=== PATIENT | male | born 1975 | race Caucasian/White ===

== ENCOUNTER 2017-08-12 11:02 | Inpatient (IN) | payer BC, OTHER ==
[~2017-08-12] VITALS: Ht 182.9 cm; Wt 79.4 kg
[2017-08-12 13:30] VITALS: BP 115/76
[2017-08-12] MEDS ORDERED: DICYCLOMINE HCL 20 MG TABLET PO PRN (14:45)
[2017-08-12] MEDS ORDERED: MAGNESIUM HYDROXIDE 30 ML LIQUID UDC PO PRN (14:45)
[2017-08-12] MEDS ORDERED: THIAMINE HCL 200 MG/2 ML VIAL IM ONE (14:45)
[2017-08-12] MEDS ORDERED: NICOTINE POLACRILEX 4 MG GUM-PK OF TEN BC PRN (14:45)
[2017-08-12] MEDS ORDERED: MIRALAX 17 GM POWD.PACK PO PRN (14:45)
[2017-08-12] MEDS ORDERED: CLONIDINE HCL 0.1 MG TABLET PO PRN (14:45)
[2017-08-12] MEDS ORDERED: LORAZEPAM 1 MG TABLET PO PRN (14:45)
[2017-08-12] MEDS ORDERED: LOPERAMIDE HCL 2 MG CAPSULE PO PRN ×2 (14:45)
[2017-08-12] MEDS ORDERED: ONDANSETRON 4 MG/2 ML VIAL IM PRN (14:45)
[2017-08-12] MEDS ORDERED: NICOTINE 14 MG/24HR PATCH TD PRN (14:45)
[2017-08-12] MEDS ORDERED: LORAZEPAM 2 MG/1 ML VIAL IM PRN (14:45)
[2017-08-12] MEDS ORDERED: MAG HYDROX/AL HYDROX/SIMETH 30 ML LIQUID UDC PO PRN (14:45)
[2017-08-12] MEDS ORDERED: ACETAMINOPHEN 325 MG TABLET PO PRN (14:45)
--- NOTE | 2017-08-12 14:46 | NUR ---
PRE ASSESSMENT; A 6O YO MALE A/O X 4 WITH STEADY GAIT IN INTAKE FOR ETOH WITHDRAWAL. HE IS FLUSHED WITH ANXIOUS MOOD AND GUARDED AFFECT. HE REPORTS DRINKING 1 LITER OF VODKA DAILY IN THIS PATTERN FOR 2 YEARS. HE LAST DRANK [address] PLANE FROM [employer] TODAY AND 2 BEERS THIS MORNING BEFORE PLANE RIDE. HE DENIES SZ HX. HE REPORTS A HX OF DEPRESSION. CURRENTLY NO ANTIDEPRESSANTS ON BOARD. HE DENIES MEDICAL HX. HE STATES HE CANNOT STOP DRINKING ON HIS OWN AND NEEDS HELP. BP 153/86 P 107 R 18 T 97.9 WILL ASSESS ON UNIT.
[2017-08-12] MEDS ORDERED: HYDR28GE TP (15:02)
[2017-08-12] MEDS ORDERED: [UNRECOGNIZED DRUG - CODE] PO (15:02)
[2017-08-12] MEDS ORDERED: LOPE1TAB46 PO (15:02)
[2017-08-12] MEDS ORDERED: Famotidine (15:02)
[2017-08-12] MEDS ORDERED: CHOL200074 PO (15:07)
[2017-08-12 15:22] LABS: *AMPHETAMINE, URINE NEGATIVE (NEGATIVE); *BARBITURATE, URINE NEGATIVE (NEGATIVE); *CANNABINOID, URINE NEGATIVE (NEGATIVE); *COCCAINE, URINE NEGATIVE (NEGATIVE); *OPIATE, URINE NEGATIVE (NEGATIVE); *PHENCYCLIDINE SCREEN,URINE NEGATIVE (NEGATIVE)
[2017-08-12 15:42] LABS: BASOPHILS % (AUTO) 0.6 % (0.0-2.0); EOSINOPHILS # (AUTO) 0.1 K/uL (0.0-0.7); EOSINOPHILS % (AUTO) 1.7 % (0.0-7.0); HEMATOCRIT 43.7 % (36.7-47.1); HEMOGLOBIN 15.1 g/dL (12.5-16.3); LYMPHOCYTES % (AUTO) 15.3 % (20.5-51.5); MEAN CORPUSCULAR HGB CONC 35 g/dL (32.5-36.3); MEAN CORPUSCULAR VOLUME 86.6 fL (73.0-96.2); MONOCYTES # (AUTO) 0.5 K/uL (2.0-10.0); MONOCYTES % (AUTO) 8.4 % (0.0-11.0); NEUTROPHILS # (AUTO) 4.8 K/uL (1.8-8.9); RED BLOOD CELL COUNT(AUTO) 5.05 MIL/uL (4.06-5.63); WHITE BLOOD COUNT (AUTO) 6.4 K/uL (3.6-10.2)
[2017-08-12 15:44] LABS: PLATELET COUNT (AUTO) 145 K/uL (152-348)
[2017-08-12 15:52] LABS: CREATININE 0.8 mg/dL (0.6-1.3); MAGNESIUM 1.8 mg/dL (1.8-2.4); POTASSIUM 3.3 mmol/L (3.5-5.1); TOTAL PROTEIN, SERUM 7.6 g/dL (6.4-8.2)
[2017-08-12 16:00] VITALS: BP 146/94
[2017-08-12 16:02] LABS: THYROID STIMULATING HORMONE 0.905 mIU/mL (0.358-3.740)
--- NOTE | 2017-08-12 16:06 | NUR ---
ADMISSION: A 42 YEAR OLD MALE ADMITTED FOR MEDICALLY SUPERVISED WITHDRAWAL OF ETOH. HE REPORTS DRINKING 1 LITER OF VODKA DAILY IN THIS PATTERN FOR 2 YEARS. HE LAST DRANK 2 BEERS BEFORE GETTING ON THE PLANE. HE REPORTS DRINKING 3 MINIATURE BOTTLES OF WINE ON THE PLANE AND A DOUBLE VODKA COCKTAIL. HE PRESENTS WITH FLUSHED FACE,ANXIOUS MOOD AND CONGRUENT AFFECT. FINE TREMORS TO HANDS NOTED. HE IS FIDGETY AND BECOMES EMOTIONAL WHEN DISCUSSING THE NEGATIVE CONSEQUENCES OF HIS DRINKING. HE DENIES S/I AND H/I. HE STATES HE IS AND STATES HIS DRINKING WAS A BIG PART OF WHY, AND HE LOST HIS JOB LAST MONDAY DUE TO HIS DRINKING. HE STATES HE ALSO MISSED HIS KIDS BIRTHDAY LAST WEEK DUE TO HIS OUT OF CONTROL DRINKING HABITS.HE STATES HE CANNOT STOP AND HIS FRIENDS AND FAMILY ARE FED UP WITH HIM. HE DENIES SEIZURE HX. HE DENIES MEDICAL HX. HE REPORTS A HX OF DEPRESSION. HE STATES HE TOOK [place] YEARS AGO BUT NO MEDS AT THIS TIME. HE DENIES ALLERGIES. HE DENIES A PCP. CIWA 15. ORIENTED PT TO STAFF AND UNIT . OFFERED SUPPORT AND REASSURED PT THAT NURSING IS AVAILABLE 19/09. THIAMINE IM ADMINISTERED. WILL MONITOR ,MANAGE S/S OF W/D AND OFFER SAFE AND SUPPORTIVE ENVIRONMENT.
[2017-08-12] MEDS ORDERED: POTASSIUM CHLORIDE 10 MEQ TAB.PRT.SR PO ONE (16:30)
[2017-08-12] MEDS: LORAZEPAM 1 MG TABLET PO PRN ×2 (16:42→20:47)
--- NOTE | 2017-08-12 16:45 | NUR ---
PRN ATIVAN 2 MG PO GIVEN FOR CIWA 15. WILL MONITOR EFFECTIVENESS OF PRN MED.
--- NOTE | 2017-08-12 17:45 | NUR ---
PRN ATIVAN EFFECTIVE AEB CIWA 10. WILL CONTINUE TO MONITOR.
--- NOTE | 2017-08-12 19:01 | NUR ---
END OF SHIFT: PT IS NEWLY ADMITTED FOR ETOH WITHDRAWAL. LAST CIWA 10 AFTER ADMINISTERING ATIVAN 2 MG PO PRN FOR CIWA 15. HE IS LAYING IN BED A/OX 4 WATCHING TV. HIS MOOD IS LABILE AND HJE IS EMOTIONAL AND ANXIOUS. OFFERED SUPPORT. WILL PASS SHIFT REPORT TO ONCOMING NIGHT NURSE.
--- NOTE | 2017-08-12 19:30 | NUR ---
Start of Shift Pt is a 42 y/o male admitted 08/12/17 for medically managed withdrawal/detox from ETOH. Pt is a Full Code with NKA's on a Regular diet. Pt presents with a PMH of Depression and Anxiety, denies any seizure history, on PRN Ativan PO. Pt found in room, supine in bed. Able to follow commands and answer questions appropriately. C/o anxiety and agitation apparent. Pt says "It feels like my heart is trying to beat out of my chest". Evening meds reviewed with pt with Ativan and Benedryl requested. Pt forehead slightly moist, hands tremulous, no c/o N&V. Will administer evening meds and monitor pt, promptly attending to all needs
[2017-08-12 20:00] VITALS: BP 137/98
[2017-08-12] MEDS: diphenhydrAMINE 50 MG CAPSULE PO PRN (20:46)
--- NOTE | 2017-08-12 20:47 | NUR ---
PRN Meds Ativan 2mg PO given for CIWA of 16, Pt diaphoretic, HR 110, SBP 137. Benedryl 50mg PO given for insomnia. Will continue to monitor, reassessing in 1 hour, and promptly attend to all pt needs
--- NOTE | 2017-08-12 21:47 | NUR ---
PRN Reassessment Ativan 2mg PO and Benedryl 50mg PO given 1 hour prior. At present pt sleeping, RR 14, even and nonlabored. Meds effective
[2017-08-13] VITALS: BP 144/85
[2017-08-13 04:00] VITALS: BP 135/85
--- NOTE | 2017-08-13 07:32 | NUR ---
End of Shift Pt is a 42 y/o male admitted 08/12/17 for medically managed withdrawal/detox from ETOH. Pt is a Full Code with NKA's on a Regular diet. Pt presents with a PMH of Depression and Anxiety, denies any seizure history, on PRN Ativan PO. Pt remains on safety precautions (fall/seizure). Pt rec'd Ativan 2mg PO for CIWA of 16 and Benedryl 50mg PO as PRN's for shift. Last CIWA 9 at 0400. Pt slept for 9 hours, with 800 mls intake, 2 voids and no BM's. Endorsement given to day nurse.
[2017-08-13 08:00] VITALS: BP 141/89
--- NOTE | 2017-08-13 08:05 | NUR ---
START OF SHIFT: RECEIVED PT LAYING IN BED WITH EYES CLOSED. RESPIRATIONS EVEN AND UNLABORED. CALL JI IN REACH. BED LOCKED AND LOW. WILL ASSESS DURING MED ADMINISTRATION.
[2017-08-13] MEDS ORDERED: TUBERCULIN,PURIF.PROT.DERIV. 5 TU/0.1 ML TEST ID ONE (09:00)
[2017-08-13] MEDS: MULTIVITAMINS,THERAPEUTIC TABLET PO SCH (09:05)
[2017-08-13] MEDS: FOLIC ACID 1 MG TABLET PO SCH (09:05)
[2017-08-13] MEDS: THIAMINE HCL 100 MG TABLET PO SCH (09:05)
[2017-08-13] MEDS: LORAZEPAM 1 MG TABLET PO PRN (09:05)
--- NOTE | 2017-08-13 09:07 | NUR ---
PT IS A/O X 4. HE PRESENTS WITH ANXIOUS MOOD AND GUARDED AFFECT. FINE TREMORS NOTED TO HANDS. HIS FACE IS FLUSHED. HE IS FIDGETY AND DISHEVELED. HE REPORTS ANXIETY,MILD NAUSEA,IRRITABILITY,DEPRESSION AND FATIGUE. CIWA 15 PRN ATIVAN 2 MG PO GIVEN TO MANAGE S/S OF W/D. WILL MONITOR EFFECTIVENESS OF PRN MED. ENCOURAGED INCREASED FLUIDS TO ASSIST IN FACILITATING DETOX PROCESS. ENCOURAGED REST TODAY. PPD PLANTED TO [facility]. WILL CONTINUE TO PROVIDE SAFE AND SUPPORTIVE ENVIRONMENT AND MANAGE S/S OF W/D.
--- NOTE | 2017-08-13 10:07 | NUR ---
ATIVAN PRN EFFECTIVE AEB CIWA 11. HE REPORTS THAT HE FEELS A LITTLE BETTER. WILL CONTINUE TO MONITOR.
[2017-08-13 12:00] VITALS: BP 142/90
[2017-08-13] MEDS: ONDANSETRON ODT 4 MG TAB.RAPDIS SL PRN (12:23)
--- NOTE | 2017-08-13 12:25 | NUR ---
PRN ZOFRAN GIVEN FOR REPORTED NAUSEA. WILL MONITOR EFFECTIVENESS.
--- NOTE | 2017-08-13 13:25 | NUR ---
PRN ZOFRAN EFFECTIVE. HE DENIES NAUSEA AT THIS TIME.
[2017-08-13] MEDS: LORAZEPAM 1 MG TABLET PO SCH ×2 (14:16→20:30)
[2017-08-13 16:00] VITALS: BP 157/94
--- NOTE | 2017-08-13 18:33 | NUR ---
END OF SHIFT: PT STARTED ON ATIVAN TAPER THIS AFTERNOON. PRN ATIVAN GIVEN TO MANAGE S/S OF W/D WHICH INCLUDE ANXIETY ,SWEATS,NAUSEA,DEPRESSION AND IRRITABILITY. PRN ZOFRAN GIVEN FOR NAUSEA AND EFFECTIVE. LAST CIWA 13. HE RESTED MOST OF SHIFT AND WAS COMPLIANT WITH INCREASED FLUIDS. WILL PASS SHIFT REPORT TO ONCOMING NIGHT NURSE.
--- NOTE | 2017-08-13 19:30 | NUR ---
Start of Shift Pt is a 42 y/o male admitted 08/12/17 for medically managed withdrawal/detox from ETOH. Pt is a Full Code with NKA's on a Regular diet. Pt presents with a PMH of Depression and Anxiety, denies any seizure history, on 4 day Ativan taper starting 08/13/17. Pt found in room, supine in bed. Able to follow commands and answer questions appropriately. C/o anxiety and agitation apparent. Evening meds reviewed with pt with Ativan and Benedryl requested. Pt forehead slightly moist, hands tremulous,c/o slight nausea. Will administer evening meds and monitor pt, promptly attending to all needs
[2017-08-13 20:00] VITALS: BP 138/90
[2017-08-13] MEDS: diphenhydrAMINE 50 MG CAPSULE PO PRN (20:30)
--- NOTE | 2017-08-13 20:30 | NUR ---
PRN Med Benedryl 50mg PO given for insomnia per pt request. Will continue to monitor, reassessing in 1 hour, and promptly attending to all pt needs.
--- NOTE | 2017-08-13 21:30 | NUR ---
PRN Reassessment Benedryl 50mg PO given 1 hour prior for insomnia. At present pt in bed supine, sleeping, RR 14, even and nonlabored. Med effective
[2017-08-14] VITALS: BP 124/76
[2017-08-14 04:00] VITALS: BP 117/72
--- NOTE | 2017-08-14 04:00 | NUR ---
CIWA Deferred VS's obtained, CIWA deferred r/t pt sleeping/refused. Will continue to monitor
--- NOTE | 2017-08-14 07:17 | NUR ---
Start of Shift Pt is a 42 y/o male admitted 08/12/17 for medically managed withdrawal/detox from ETOH. Pt is a Full Code with NKA's on a Regular diet. Pt presents with a PMH of Depression and Anxiety, denies any seizure history, on 4 day Ativan taper starting 08/13/17. Pt still appearing depressed, anxious about work/home/housing. Provided encouragement for future/suggestion PRN's for shift included Benedryl 50mg PO for insomnia. Last CIWA was 7 at 0000 hours. Pt slept for 8 hours, with 1000 mls intake, 2 voids and no BM's. Endorsement given to day nurse.
--- NOTE | 2017-08-14 07:46 | NUR ---
START OF SHIFT PT IS A 42 Y/O M ADMITTED ON 08/12/17 FOR MEDICALLY SUPERVISED ETOH WITHDRAWAL. PT IS PLACED ON A 4 DAY ATIVAN TAPER, TODAY BEING THE SECOND DAY. LAST CIWA 7, BENADRYL PRN GIVEN LAST NIGHT FOR SLEEP AND PT SLEPT 8 HRS. RECEIVED PT A/OX4, RESPIRATIONS EVEN AND UNLABORED. PT APPEARS DISHEVELED, HAS A FLAT AFFECT, PT PRESENTS HEADACHE, ANXIETY, AGITATION, RESTLESSNESS, DIARRHEA, INTERMITTENT CHILLS, FATIGUE, DYSPHORIA, ANHEDONIA AND TREMORS ARE NOTED. EDUCATED PT WITH TODAY'S PLAN OF CARE AND MED REGIMEN. SIDE RAILS UPX2, BED IN LOW POSITION. CALL LIGHT WITHIN REACH. SAFETY MEASURES IN PLACE. WILL CONTINUE TO MONITOR.
[2017-08-14 08:00] VITALS: BP 111/69
[2017-08-14 08:22] LABS: BASOPHILS % (AUTO) 0.4 % (0.0-2.0); EOSINOPHILS # (AUTO) 0.2 K/uL (0.0-0.7); EOSINOPHILS % (AUTO) 4.1 % (0.0-7.0); HEMATOCRIT 45.2 % (36.7-47.1); HEMOGLOBIN 15.6 g/dL (12.5-16.3); LYMPHOCYTES # (AUTO) 1.3 K/uL (20.0-40.0); LYMPHOCYTES % (AUTO) 23.2 % (20.5-51.5); MEAN CORPUSCULAR HEMOGLOBIN 30.6 uug (23.8-33.4); MEAN CORPUSCULAR HGB CONC 35 g/dL (32.5-36.3); MEAN CORPUSCULAR VOLUME 88.7 fL (73.0-96.2); MONOCYTES # (AUTO) 0.4 K/uL (2.0-10.0); NEUTROPHILS # (AUTO) 3.6 K/uL (1.8-8.9); NEUTROPHILS % (AUTO) 65.3 % (38.5-71.5); PLATELET COUNT (AUTO) 110 K/uL (152-348); WHITE BLOOD COUNT (AUTO) 5.4 K/uL (3.6-10.2)
[2017-08-14] MEDS: MULTIVITAMINS,THERAPEUTIC TABLET PO SCH (08:22)
[2017-08-14] MEDS: IBUPROFEN 400 MG TABLET PO PRN (08:22)
[2017-08-14] MEDS: FOLIC ACID 1 MG TABLET PO SCH (08:22)
[2017-08-14] MEDS: THIAMINE HCL 100 MG TABLET PO SCH (08:22)
--- NOTE | 2017-08-14 08:23 | NUR ---
PRN IMODIUM AND IBUPROFEN GIVEN FOR DIARRHEA AND C/O HEADACHE /10 PAIN. WILL MONITOR AND REASSESS.
[2017-08-14] MEDS ORDERED: LORAZEPAM 1 MG TABLET PO SCH ×2 (09:00→21:00)
[2017-08-14 09:07] LABS: BILIRUBIN,DIRECT 0.3 mg/dL (0.0-0.2); BILIRUBIN,TOTAL 1.1 mg/dL (0.2-1.0); MAGNESIUM 2.1 mg/dL (1.8-2.4); POTASSIUM 4.8 mmol/L (3.5-5.1)
--- NOTE | 2017-08-14 09:23 | NUR ---
REASSESSMENT PT IS IN ROOM LAYING IN BED WATCHING TV; PT REPORTS IBUPROFEN WAS EFFECTIVE IN DECREASING THE PAIN LEVEL DOWN TO 5/10 FROM 8. NO DIARRHEA EPISODES OF YET. WILL CONTINUE TO MONITOR AND PROVIDE SUPPORT.
[2017-08-14] MEDS: ESCITALOPRAM OXALATE 10 MG TABLET PO SCH (09:55)
[2017-08-14 12:00] VITALS: BP 131/81
[2017-08-14] MEDS: LORAZEPAM 1 MG TABLET PO SCH ×2 (12:12→16:35)
[2017-08-14] MEDS: ONDANSETRON ODT 4 MG TAB.RAPDIS SL PRN (12:13)
--- NOTE | 2017-08-14 12:50 | NUR ---
REASSESSMENT PT REPORTS NAUSEA HAS CEASED. SAFETY MEASURES IN PLACE. WILL CONTINUE TO MONITOR.
[2017-08-14] MEDS ORDERED: GABAPENTIN 300 MG CAPSULE PO SCH (13:00)
[2017-08-14 13:06] LABS: HEPATITIS B SURFACE AG Negative (Negative)
--- NOTE | 2017-08-14 13:19 | NUR ---
PRN NAUSEA 4MG SL PRN GIVEN FOR C/O NAUSEA; PT REPORTS A GENERALIZED FEELING OF BEING UNWELL, PERSISTENT NAUSEA AND DENIES VOMITING. WILL MONITOR AND REASSESS. Addendum: 08/14/17 at 1321 by CHICHO TAYLOR RN CORRECT TIME IS 1213
[2017-08-14 16:25] VITALS: BP 129/86
--- NOTE | 2017-08-14 19:25 | NUR ---
END OF SHIFT PT HAS BEEN ISOLATIVE IN ROOM THROUGHOUT SHIFT AND CONTINUES TO BE FLUSHED, HAS A DEPRESSIVE AND ANXIOUS MOOD WITH A FLAT AFFECT. PT HAS BEEN EMOTIONAL AND VERBALIZING HIS SITUATION WITH THE THERAPIST AND STAFF. PT STATES HE FEELS MUCH BETTER AFTERWARDS. LAST CIWA @1600. PT HAS BEEN GIVEN IBUPROFEN PRN FOR HEADACHE. PT HAS ATTENDED GROUPS; STATES IT INCREASES HIS ANXIETY. PT ATE 75% OF MEALS. FLUID INTAKE 2596ML, VOIDED X5, BM X1. SAFETY MEASURE IN PLACE. ENDORSEMENT GIVEN TO STATE'S ATTORNEY NURSE.
--- NOTE | 2017-08-14 19:30 | NUR ---
Start of Shift Pt endorsement received from day nurse. Pt assessed in room. Room somewhat messy with an odor. Empty food wrappings and drink containers scattered about appearing very sad and worried, fearful, preoccupied with avoidant eye contact Report that it was a very emotional day with groups, triggering old events and emotions. Pt discusses ex-, children, brother he is currently living with, and being fired from his job. Feeling of worthlessness and hopeless/helpless evident. Pt reassured and encouraged. Pt noted with c/o sweats, restlessness, increased anxiety and agitation (majority of CIWA), diarrhea, mild H/A, rates pain as 1/10. Pt requests sleep aid with evening meds. Will monitor and attend to all needs promptly until morning endorsement.
[2017-08-14 20:00] VITALS: BP 148/97
[2017-08-14] MEDS: GABAPENTIN 300 MG CAPSULE PO SCH (21:21)
[2017-08-14] MEDS: diphenhydrAMINE 50 MG CAPSULE PO PRN (21:21)
--- NOTE | 2017-08-14 21:21 | NUR ---
PRN Med Benedryl 50mg PO given for pt c/o insomnia. Will continue to monitor, reassessing in 1 hour
--- NOTE | 2017-08-14 22:21 | NUR ---
PRN Reassessment Benedryl 50mg PO given for insomnia 1 hour prior. At present pt is sleeping, RR 14, even and nonlabored. Med effective
[2017-08-15] VITALS (7 sets, daily range): BP systolic 107–138; BP diastolic 60–84
--- NOTE | 2017-08-15 | NUR ---
CIWA Deferred VS's obtained and stable, BP 123/60, HR 79, RR 14 even and nonlabored. CIWA deferred r/t pt sleeping. Will continue to monitor pt
--- NOTE | 2017-08-15 04:00 | NUR ---
CIWA Deferred VS's obtained and stable, BP 111, HR 65, RR 14 even and nonlabored. CIWA deferred r/t pt sleeping. Will continue to monitor pt
--- NOTE | 2017-08-15 07:35 | NUR ---
End of Shift Endorsement reported to day nurse. Pt issues are anxiety/agitation over ex-, children, career. Feelings of guilt/shame/low self-esteem with racing thoughts, feelings of worthlessness and easily overwhelmed/unresolved bereavement. Night uneventful, no behavioral or withdrawal episodes noted p evening meds. HR noted to decrease throughout night. VS's, BP stable with no c/o's post evening meds. Pt slept for 7 hours with 2047 mls intake, 2 voids and no BM's
--- NOTE | 2017-08-15 07:47 | NUR ---
START OF SHIFT PT IS A 42 Y/O M ADMITTED ON 08/12/17 FOR MEDICALLY SUPERVISED ETOH WITHDRAWAL. TODAY IS THE THIRD DAY OF THE 4 DAY ATIVAN TAPER,. LAST CIWA , BENADRYL PRN GIVEN LAST NIGHT FOR SLEEP AND PT SLEPT 7 HRS. RECEIVED PT A/OX4, RESPIRATIONS EVEN AND UNLABORED. PT APPEARS DISHEVELED, HAS A FLAT AFFECT WITH A ANXIOUS AND DEPRESSION MOOD, PT PRESENTS FACIAL FLUSHING, HEADACHE, HIGHER EMOTIONAL AMPLITUDE, ANXIETY, AGITATION, RESTLESSNESS, INTERMITTENT CHILLS, FATIGUE, DYSPHORIA, ANHEDONIA AND TREMORS ARE NOTED. EDUCATED PT WITH TODAY'S PLAN OF CARE AND MED REGIMEN. SIDE RAILS UPX2, BED IN LOW POSITION. CALL LIGHT WITHIN REACH. SAFETY MEASURES IN PLACE. WILL CONTINUE TO MONITOR.
[2017-08-15] MEDS: MULTIVITAMINS,THERAPEUTIC TABLET PO SCH (08:59)
[2017-08-15] MEDS: ESCITALOPRAM OXALATE 10 MG TABLET PO SCH (08:59)
[2017-08-15] MEDS: LORAZEPAM 1 MG TABLET PO SCH ×3 (08:59→20:13)
[2017-08-15] MEDS: FOLIC ACID 1 MG TABLET PO SCH (08:59)
[2017-08-15] MEDS: THIAMINE HCL 100 MG TABLET PO SCH (08:59)
[2017-08-15] MEDS: GABAPENTIN 300 MG CAPSULE PO SCH ×2 (08:59→20:13)
[2017-08-15] MEDS: IBUPROFEN 400 MG TABLET PO PRN (09:03)
--- NOTE | 2017-08-15 09:03 | NUR ---
PRN IBUPROFEN 40 MG PO PRN GIVEN FOR HEADACHE 6/10 PAIN. WILL MONITOR AND REASSESS.
--- NOTE | 2017-08-15 10:03 | NUR ---
REASSESSMENT PT REPORTS MED EFFECTIVE; HEADACHE IS NOW DECREASED TO 3/10 PAIN. WILL CONTINUE TO MONITOR.
[2017-08-15] MEDS ORDERED: ACAMPROSATE CALCIUM 333 MG TABLET.DR PO ONE (13:00)
[2017-08-15] MEDS ORDERED: ACAM333T8 PO (13:07)
--- NOTE | 2017-08-15 19:16 | NUR ---
END OF SHIFT PT HAS ATTENDED, PARTICIPATED IN GROUPS AND HAS TALKED TO THE THERAPIST ABOUT HIS SITUATION WITH EX- AND KIDS. PT REPORTS IT HAS BEEN THERAPEUTIC AND HELPING HIM, HOWEVER STILL FEELING DEPRESSED. PT APPEARS FLUSHED, HAS A DEPRESSIVE AND ANXIOUS MOOD WITH A FLAT AFFECT. LAST CIWA 15 @1600. C/O HEADACHE, ANXIETY, RESTLESSNESS, AGITATION. PT HAS BEEN GIVEN IBUPROFEN PRN FOR HEADACHE. PT ATE 0/100/75% OF MEALS. FLUID INTAKE 1596ML, VOIDED X3, BM 0. SAFETY MEASURE IN PLACE. ENDORSEMENT GIVEN TO INDUSTRIAL GAS SERVICER NURSE.
--- NOTE | 2017-08-15 19:30 | NUR ---
START OF SHIFT Pt is a 42 y/o male admitted for ETOH withdawals.Pt is A/A/O X 4.Received in room,mood is sad and depressed,c/o feeling extremely anxious and emotionally disturbed due to divorce issues he has been going through,said he his missing his children and wants to to do the best for them.Emotional support provided.Pt encouraged to verbalize needs and concerns.Pt presented with mild headache,intermittent chills,anxiety and agitation.Pt has been compliant with medications and tx plan.Last CI.All safety measures in place,call sinclair is within reach.Will continue to medicate per orders and monitor for safe withdrawals.
[2017-08-15] MEDS ORDERED: HYDROXYZINE PAMOATE 25 MG CAPSULE PO PRN (20:00)
--- NOTE | 2017-08-15 20:15 | NUR ---
PT C/O FEELING EXTREMELY ANXIOUS.PRN VISTARIL GIVEN ORDERED.WILL CONTINUE TO MONITOR.
--- NOTE | 2017-08-15 21:15 | NUR ---
PRN F/U PT VERBALIZES A DECREASE IN ANXIETY.WILL CONTINUE TO MONITOR.
[2017-08-15] MEDS: diphenhydrAMINE 50 MG CAPSULE PO PRN (21:39)
--- NOTE | 2017-08-15 21:40 | NUR ---
PRN BENADRYL GIVEN FOR C/O INSOMNIA.
--- NOTE | 2017-08-15 22:13 | NUR ---
PT IS STILL AWAKE AND ANXIOUS.B/P=149/98.PRN CLONIDINE GIVEN ORDERED,WILL CONTINUE TO MONITOR.
--- NOTE | 2017-08-15 23:15 | NUR ---
PRN MEDS ARE EFFECTIVE.PT IS CALM AND RESTING IN BED WITH EYES CLOSED.BREATHING IS EVEN AND NON LABORED.NO S/S OF DISTRESS NOTED.WILL CONTINUE TO MONITOR.
[2017-08-16] VITALS: BP 105/61
--- NOTE | 2017-08-16 | NUR ---
CIWA DEFERRED V/S are stable, BP 105/61, HR 71, RR 16 even and nonlabored. CIWA deferred due to pt being asleep. Will continue to monitor.
[2017-08-16 04:00] VITALS: BP 110/69
--- NOTE | 2017-08-16 04:00 | NUR ---
CIWA DEFERRED V/S are stable.Pt is sleeping comfortably in bed,breathing is even and non labored,no s/s of distress noted. CIWA deferred due to pt being asleep. Will continue to monitor.
--- NOTE | 2017-08-16 06:48 | NUR ---
END OF SHIFT Pt is a 42 y/o male admitted for ETOH withdrawals.Pt is A/A/O X 4,mood is sad and depressed,c/o feeling extremely anxious and emotionally disturbed due to divorce issues he has been going through,said he his missing his children and wants to to do the best for them.Emotional support provided.Pt encouraged to verbalize needs and concerns.PRN meds : Benadryl,Vistaril anf Clonidine were given and were effective.Pt slept 7 hrs,fluid intake was 1500 mls,voided x 2. Pt has been compliant with medications and tx plan.Last CIWA 12.All safety measures in place,call sinclair is within reach .Will endorse care to day shift nurse.
--- NOTE | 2017-08-16 07:53 | NUR ---
START OF SHIFT PT IS A 42 Y/O M ADMITTED ON 08/12/17 FOR MEDICALLY SUPERVISED ETOH WITHDRAWAL. TODAY IS THE FOURTH DAY OF 4 DAY ATIVAN TAPER, LAST CIWA 12, CLONIDINE, VISTARIL, AND BENADRYL PRNS GIVEN LAST NIGHT. PT SLEPT 7 HRS. RECEIVED PT A/OX4, RESPIRATIONS EVEN AND UNLABORED. PT APPEARS DISHEVELED, HAS A DEPRESSIVE MOOD, PT PRESENTS ANXIETY, FACIAL FLUSHING, HEADACHE, HIGHER EMOTIONAL AMPLITUDE, AGITATION, RESTLESSNESS, FATIGUE, DYSPHORIA, ANHEDONIA AND TREMORS ARE NOTED. ENCOURAGED PT TO DO DEEP BREATHING EXERCISES TO PROMOTE RELAXATION. EDUCATED PT WITH TODAY'S PLAN OF CARE AND MED REGIMEN. SIDE RAILS UPX2, BED IN LOW POSITION. CALL LIGHT WITHIN REACH. SAFETY MEASURES IN PLACE. WILL CONTINUE TO MONITOR.
[2017-08-16 08:00] VITALS: BP 108/66
[2017-08-16] MEDS ORDERED: LORAZEPAM 1 MG TABLET PO SCH (09:00)
[2017-08-16] MEDS: THIAMINE HCL 100 MG TABLET PO SCH (09:24)
[2017-08-16] MEDS: ESCITALOPRAM OXALATE 10 MG TABLET PO SCH (09:24)
[2017-08-16] MEDS: GABAPENTIN 300 MG CAPSULE PO SCH ×2 (09:24→20:28)
[2017-08-16] MEDS: MULTIVITAMINS,THERAPEUTIC TABLET PO SCH (09:25)
[2017-08-16] MEDS: IBUPROFEN 400 MG TABLET PO PRN (09:25)
[2017-08-16] MEDS: FOLIC ACID 1 MG TABLET PO SCH (09:25)
--- NOTE | 2017-08-16 09:25 | NUR ---
PRN IBUPROFEN 400 MG PO PRN GIVEN FOR GENERALIZED BODY ACHES /10. WILL MONITOR AND REASSESS.
--- NOTE | 2017-08-16 10:25 | NUR ---
REASSESSMENT PT REPORTS MED WAS EFFECTIVE AND BODY ACHES HAS DECREASED FROM 5 TO 3/10. WILL CONTINUE TO MONITOR.
[2017-08-16 12:00] VITALS: BP 139/85
[2017-08-16] MEDS: HYDROXYZINE PAMOATE 25 MG CAPSULE PO PRN ×2 (15:03→21:45)
--- NOTE | 2017-08-16 15:03 | NUR ---
PRN VISTARIL 25 MG PO PRN GIVEN FOR C/O INCREASED ANXIETY; PT APPEARS FLUSHED AND TREMORS ARE SEEN. WILL MONITOR AND REASSESS.
[2017-08-16 16:00] VITALS: BP 137/81
--- NOTE | 2017-08-16 16:30 | NUR ---
REASSESSMENT PT REPORTS MED EFFECTIVE BUT STILL HAVING ANXIETY. ENCOURAGED PT TO DO DEEP BREATHING EXERCISES TO PROMOTE RELAXATION. WILL CONTINUE TO MONITOR.
--- NOTE | 2017-08-16 18:35 | NUR ---
END OF SHIFT PT HAS PT APPEARS FLUSHED, HAS A DEPRESSIVE AND ANXIOUS MOOD WITH A FLAT AFFECT. LAST CIWA 15 @1600. PT PRESENTED INCREASED ANXIETY. PT HAS BEEN GIVEN IBUPROFEN AND VISTARIL PRNS. PT ATE MOSTLY 75% OF MEALS. FLUID INTAKE 3150ML, VOIDED X5, BM 1. PT IS MEDICALLY CLEARED TO BE DISCHARGED TOMORROW. SAFETY MEASURE IN PLACE. ENDORSEMENT WILL BE GIVEN TO CHEESE SUPERVISOR NURSE.
--- NOTE | 2017-08-16 19:14 | NUR ---
Start of shift note Received report from day shift nurse. Pt is a 42 yo male, A+Ox4, presenting to [facility] for ETOH withdrawal. Pt noted to be restless, anxious, and agitated. Pt has HX of anxiety and depression which will be monitored during shift. Pt has completed 4 day Ativan taper, tolerated well, and is due for discharge tomorrow. Respirations even and unlabored. Will continue to monitor.
[2017-08-16] MEDS ORDERED: GABA-534 PO (20:05)
[2017-08-16] MEDS ORDERED: HYDR-3895 PO (20:05)
[2017-08-16] MEDS ORDERED: DIPH50CA37 PO (20:05)
[2017-08-16] MEDS ORDERED: CLON0.1T14 PO (20:05)
[2017-08-16 20:07] VITALS: BP 135/79
[2017-08-16] MEDS: diphenhydrAMINE 50 MG CAPSULE PO PRN (21:45)
--- NOTE | 2017-08-16 21:45 | NUR ---
PRN Benadryl and Vistaril Pt c/o anxiety and inability to sleep and requested for PRN Benadryl and Vistaril. Medications given and tolerated well. Will reassess within 1 HR. Will continue to monitor.
--- NOTE | 2017-08-16 22:30 | NUR ---
PRN Benadryl and Vistaril Reassessment Medications effective. Pt expresses reduction in anxiety and is resting well in bed. No s/s of ASE noted at this time. Respirations even and unlabored. Will continue to monitor.
[2017-08-17 00:08] VITALS: BP 132/87
[2017-08-17 04:41] VITALS: BP 127/89
--- NOTE | 2017-08-17 07:00 | NUR ---
End of shift note Pt was continuously noted to be anxious, agitated, and restless. Pt remained in room for majority of shift except to get food from kitchen and to go smoke on smoking patio. Pt remained compliant and cooperative with all aspects of treatment. Pt was given PRN Benadryl and Vistaril @2145. Pt has completed 4 day Ativan taper, tolerated well, and is due for discharge today. Pt slept for a total of 6 HRS. Last CIWA: 5 @0400. Respirations even and unlabored. Will endorse to day shift nurse.
--- NOTE | 2017-08-17 07:30 | NUR ---
Start of Shift Notes: Received patient in his room. Awake, alert and oriented x 4. He is seen sitting up in bed, watching TV. Denies S/I or H/I noted. No AV hallucinations noted. He appears flushed and disheveled and odorous. Encouraged personal hygiene and shower. Patient states that he would shower before he discharges. Patient is a 42 year old male admitted for ETOH and withdrawal who completed her 4-day Ativan taper as ordered. NKA. FULL CODE. Regular diet. On fall and seizure precautions. Educated patient on the discharge process. Patient verbalized good understanding. PRN Benadryl, and Vistaril were given during the night. Slept for 6 hours. Last CIWA 5. Will continue to monitor.
[2017-08-17 08:00] VITALS: BP 131/81
[2017-08-17] MEDS: HYDROXYZINE PAMOATE 25 MG CAPSULE PO PRN (08:18)
[2017-08-17] MEDS: MULTIVITAMINS,THERAPEUTIC TABLET PO SCH (08:18)
--- NOTE | 2017-08-17 08:18 | NUR ---
Vistaril 25 mg PO given: CIWA 7, due to anxiety due to the discharge process. Non-pharmacological interventions provided but ineffective. Medicated patient with Vistaril 25 mg PO as ordered. Will monitor for effectiveness.
[2017-08-17] MEDS: GABAPENTIN 300 MG CAPSULE PO SCH (08:19)
[2017-08-17] MEDS: THIAMINE HCL 100 MG TABLET PO SCH (08:19)
[2017-08-17] MEDS: ESCITALOPRAM OXALATE 10 MG TABLET PO SCH (08:19)
[2017-08-17] MEDS: FOLIC ACID 1 MG TABLET PO SCH (08:19)
--- NOTE | 2017-08-17 09:18 | NUR ---
Re-assessment: Vistaril Patient verbalizes that PRN Vistaril has been effective in reducing his anxiety.
--- NOTE | 2017-08-17 09:45 | NUR ---
Discharged: Patient education provided regarding his discharge instructions provided. Included on his discharge paperwork was copies of his TB test, original prescription and dc instructions. Patient verbalized good understanding of all teachings. TRANSCRIBING MACHINE OPERATOR cabinet checked. Cassette checked. CIWA 7. VS stable. Denies S/I or H/I noted. No AV hallucinations noted. Escorted off the unit at this time with TRANSCRIBING MACHINE OPERATOR. Picked up by [facility] to be transported to [facility]
== END 2017-08-17 09:45 | disposition other institution (70) | DRG 895 ==
LOC: SRC 13:44
PROVIDERS: ADMIT Internal Medicine; ATTEND Internal Medicine
PROC: HZ2ZZZZ Detoxification Services for Substance Abuse Treatment (ICD-10-PCS; principal; 2017-08-12)
PROC: HZ41ZZZ Group Counseling for Substance Abuse Treatment, Behavioral (ICD-10-PCS; 2017-08-14)
PROC: HZ31ZZZ Individual Counseling for Substance Abuse Treatment, Behavioral (ICD-10-PCS; 2017-08-14)
DX: F10.230 Alcohol dependence with withdrawal, uncomplicated (principal); K85.20 Alcohol induced acute pancreatitis without necrosis or infection; E87.1 Hypo-osmolality and hyponatremia; K70.10 Alcoholic hepatitis without ascites; Y90.4 Blood alcohol level of 80-99 mg/100 ml; R73.9 Hyperglycemia, unspecified; F17.210 Nicotine dependence, cigarettes, uncomplicated; E87.6 Hypokalemia; E86.0 Dehydration; E87.8 Other disorders of electrolyte and fluid balance, not elsewhere classified; D69.6 Thrombocytopenia, unspecified; I15.9 Secondary hypertension, unspecified; F32.9 Major depressive disorder, single episode, unspecified; Z81.1 Family history of alcohol abuse and dependence
CPT/HCPCS: 36415; 70030-TC; 80307; 82746; 83690; 83735; 84443; 85025; 86592; 86705; 86803; 87340; 87806; 93005; G0480; J3411; Q0162; Q0163